=== PATIENT | male | born 1995 | race Caucasian/White ===

== ENCOUNTER 2019-10-22 10:42 | Emergency (ER) | payer BC, OTHER ==
[2019-10-22 11:01] VITALS: BP 131/90
--- NOTE | 2019-10-22 11:10 | UC ---
Complaint Male HPI - HPI Summary HPI Summary: 24 yo male presents with LEFT testicle concern. He tells me that over the last week he has felt enlargement of his left epididymis. He states he has had epididymitis in the past, but had pain with that - currently he has no pain. He is sexually active daily with his girlfriend and states they are both "Clean" and is not concerned for STDs today. He denies fever, chills, weight gain/loss, night sweats, dysuria, testicular pain, or trauma. - History of Current Complaint Chief Complaint: UCGeneralIllness Stated Complaint: PERSONAL Time Seen by Provider: 10/22/19 11:03 Hx Obtained From: Patient Onset/Duration: Gradual Onset Severity Currently: None Pain Intensity: 0 - Allergies/Home Medications Allergies/Adverse Reactions: Allergies Allergy/AdvReac Type Severity Reaction Status Date / Time No Known Allergies Allergy Verified 10/22/19 10:58 PMH/Surg Hx/FS Hx/Imm Hx - Additional Past Medical History Additional PMH: None - Surgical History Surgical History: Yes Surgery Procedure, Year, and Place: T&A. R index finger amputation - Family History Known Family History: Positive: None - Social History Occupation: Student Lives: Dormitory/Roommates Alcohol Use: Occasionally Substance Use Type: None Smoking Status (MU): Never Smoked Tobacco - Immunization History Vaccination Up to Date: Yes Review of Systems All Other Systems Reviewed And Are Negative: No Constitutional: Positive: Negative Skin: Positive: Negative Respiratory: Positive: Negative Cardiovascular: Positive: Negative Gastrointestinal: Positive: Negative Genitourinary: Positive: Other - Left testicular ?epididymis enlargement Neurovascular: Positive: Negative Physical Exam - Summary Physical Exam Summary: GENERAL: NAD. WDWN. No pain distress. SKIN: No rashes, sores, lesions, or open wounds. NECK: Supple. Nontender. No lymphadenopathy. CHEST: CTAB. No r/r/w. No accessory muscle use. Breathing comfortably and in no distress. CV: RRR. Pulses intact. Cap refill <2seconds ABDOMEN: Soft. NTTP. No distention or guarding.No CVA tenderness. Bowel sounds present NEURO: Alert. PSYCH: Age appropriate behavior. Triage Information Reviewed: Yes Vital Signs: Initial Vital Signs Temp 98.5 F 10/22/19 10:58 Pulse 74 10/22/19 10:58 Resp 14 10/22/19 10:58 BP 131/90 10/22/19 10:58 Pulse Ox 99 10/22/19 10:58 Vital Signs Reviewed: Yes Male Genital Exam: Positive: No Hernia, Other - No inguinal LAD. Epididymis and testicle symmetric and WNL size.. Negative: Epididymal Tenderness, Erythema, Inguinal Tenderness, Lesions, Scrotum Tenderness (R), Scrotum Tenderness (L), Testicular Tenderness (R), Testicular Tenderness (L), Urethral Discharge Diagnostics - Radiology Testicular US Radiology Interpretation Completed By: Radiologist Summary of Radiographic Findings: IMPRESSION: Left-sided varicocele with no intratesticular mass. Complaint Male Course/Dx - Course Course Of Treatment: US as above. UA as above. Will send urine for GCC. Discussed with pt that his exam was WNL and US results. Recommend f/u with Urology - Differential Dx/Diagnosis Provider Diagnosis: Varicocele Discharge ED - Sign-Out/Discharge Documenting (check all that apply): Patient Departure All imaging exams completed and their final reports reviewed: Yes - Discharge Plan Condition: Stable Disposition: HOME Patient Education Materials: Varicocele (ED) Referrals: No Primary Care Phys,NOPCP [Primary Care Provider] - Valeriano Goddard MD [Medical Doctor] - As Soon As Possible Additional Instructions: If you develop a fever, shortness of breath, chest pain, new or worsening symptoms - please call your PCP or go to the ED immediately. I recommend that you call Urology at the number below to schedule an appointment for further evaluation - Billing Disposition and Condition Condition: STABLE Disposition: Home
[2019-10-23 13:08] LABS: Chlamydia trachomatis NAA Negative (Negative); Neisseria gonorrhoeae (GC) NAA Negative (Negative)
== END 2019-10-22 12:16 | disposition home or self-care (01) ==
LOC: UCCORT 10:42
DX: I86.1 Scrotal varices (principal)
CPT/HCPCS: 76870; 81003; 87491; 87591; 99211; G0463